=== PATIENT | female | born 1990 | race Caucasian/White ===

== ENCOUNTER 2019-04-26 22:31 | Emergency (ER) | payer OTHER ==
[~2019-04-26] VITALS: Ht 162.6 cm; Wt 131.0 kg
--- NOTE | 2019-04-26 22:41 | PHYS DOC ---
Past History Past Medical History: Anemia, Constipation, Other Past Surgical History: Other Smoking: Non-smoker Alcohol Use: None Drug Use: None Adult General Chief Complaint Chief Complaint: ".. I am having some chest pain.. .I know I have a murmur... I just had a baby .. and doing breast feeding.. but this pain is on center.. and sometimes run s up in my neck... " HPI HPI Patient is a 28 year old female who presents with above hx and complaints of chest pain , fatigue and dyspnea. He localizes chest pain on left closed phrenic and sternal border which radiates into her neck area. Nothing seems to make the pain better or worse. Patient rates pain as moderate to severe. Patient denies previous history of cardiac issues. Pt. states normal delivery on . No complications. Pt. is breast feeding. No hx. of trauma or injury to chest wall. No history of travel or specific ill contacts. No history of cough. No history of fever or chills. No history of coagulopathy with her family members. Pt. follows with Dr Patel Review of Systems Review of Systems Constitutional: Denies fever or chills [] Eyes: Denies change in visual acuity, redness, or eye pain [] HENT: Denies nasal congestion or sore throat [] Respiratory: Denies cough or shortness of breath [] Cardiovascular: No additional information not addressed in HPI [] GI: Denies abdominal pain, nausea, vomiting, bloody stools or diarrhea [] : Denies dysuria or hematuria [] Musculoskeletal: Denies back pain or joint pain [] Integument: Denies rash or skin lesions [] Neurologic: Denies headache, focal weakness or sensory changes [] Endocrine: Denies polyuria or polydipsia [] All other systems were reviewed and found to be within normal limits, except as documented in this note. Family History Family History Father has Afib. Current Medications Current Medications See nursing for home meds Allergies Allergies Allergies Coded Allergies Type Severity Reaction Last Updated Verified No Known Drug Allergies 05/23/13 No Physical Exam Physical Exam Constitutional: Well developed, well nourished,moderate acute distress, non- toxic appearance. [] HENT: Normocephalic, atraumatic, bilateral external ears normal, oropharynx moist, no oral exudates, nose normal. [] Eyes: PERRLA, EOMI, conjunctiva normal, no discharge. [] Neck: Normal range of motion, no tenderness, supple, no stridor. [] Cardiovascular: bradycardia Heart rate regular rhythm, no murmur [] Lungs & Thorax: Bilateral breath sounds equal at apexes on auscultation []Some sternal tenderness on palpation. Abdomen: Bowel sounds normal, soft, no tenderness, no masses, no pulsatile masses. [] Skin: Warm, dry, no erythema, no rash. [] Back: No tenderness, no CVA tenderness. [] Extremities: No tenderness, no cyanosis, no clubbing, ROM intact, mild edema rt. ankle [] Neurologic: Alert and oriented X 3, normal motor function, normal sensory function, no focal deficits noted. [] Psychologic: Affect anxious judgement normal, mood normal. [] EKG EKG My interpretation EKG shows a sinus bradycardia 60 bpm. No findings acute morphology. 2240 hrs. [] Repeat EKG shows a sinus bradycardia at 59 bpm. No findings acute STEMI. No acute interval change. at 03:57 as compared to prior EKG Radiology/Procedures Radiology/Procedures [address] [address] IMAGING REPORT Signed PATIENT: CHARLEEN KINNEY ACCOUNT: [id number] : 1990 LOCATION: ER AGE: 28 SEX: F EXAM STATUS: REG ER ORD. PHYSICIAN: ELENA ALONSO MD REASON: pain PROCEDURE: CHEST PA & LATERAL CHEST PA LATERAL History: Pain. Comparison: None. Findings: The cardiomediastinal silhouette is normal. Pulmonary vasculature is normal. The lungs are clear. No pleural effusion or pneumothorax is seen. There is no acute bone abnormality. IMPRESSION: No acute cardiopulmonary process. Electronically signed by: Rao Juan MD (04/27/2019 2:10 AM) [id number] DICTATED AND SIGNED BY: RAO JUAN MD DATE: 04/27/190 CC: ELENA ALONSO MD; LUZ PATEL ~ [[address] [address] IMAGING REPORT Signed PATIENT: CHARLEEN KINNEY ACCOUNT: [id number] : 1990 LOCATION: ER AGE: 28 SEX: F EXAM STATUS: REG ER ORD. PHYSICIAN: ELENA ALONSO MD REASON: Elev. D-dimer, chest wall pain, OMNI 350, 90ml PROCEDURE: CT ANGIOGRAPHY CHEST PQRS Compliance Statement: One or more of the following individualized dose reduction techniques were utilized for this examination: 1. Automated exposure control 2. Adjustment of the mA and/or kV according to patient size 3. Use of iterative reconstruction technique CT CHEST WITH CONTRAST, PULMONARY ANGIOGRAM History: Elevated d-dimer, chest wall pain. Comparison: None. Technique: Helical CT of the chest was performed after the administration of 90 cc of Omnipaque 350 intravenous contrast according to PE protocol. Axial and coronal reconstructions were obtained. 3-D MIP images were constructed to better evaluate the pulmonary arteries. Findings: Pulmonary arteries are adequately opacified. There is no evidence of pulmonary embolism. There is no thoracic aortic dissection. The great vessels are normal caliber. Residual thymus in the anterior mediastinum, normal for a patient of this age. The breasts are extremely dense. There is no adenopathy in the chest. Cardiac size normal, no pericardial effusion. There is no pleural abnormality. The central airways are patent. There is atelectasis in the bilateral lower lobes. No lung consolidation. The visualized upper abdomen is unremarkable. The thoracic spine alignment is maintained. There is a small amount of air in the right shoulder joint, nonspecific. No acute displaced rib fracture. IMPRESSION: There is no pulmonary embolus. Electronically signed by: Rao Juan MD (04/27/2019 1:59 AM) [id number] DICTATED AND SIGNED BY: RAO JUAN MD DATE: 04/27/19 0159 CC: ELENA ALONSO MD; LUZ PATEL ~ ][address] [address] IMAGING REPORT Signed PATIENT: CHARLEEN KINNEY ACCOUNT: [id number] : 1990 LOCATION: ER AGE: 28 SEX: F EXAM STATUS: REG ER ORD. PHYSICIAN: ELENA ALONSO MD REASON: Elevated D-dimer, chest pain, leg edema PROCEDURE: VENOUS LOWER EXT BILATERAL Bilateral lower extremity venous Doppler ultrasound History: Bilateral leg edema. 4 days. Comparison: None. Procedure: Color flow Doppler, Doppler spectral analysis, and 2D images are obtained with and without compression in the area of the common femoral vein, superficial femoral vein - femoral vein junction, main femoral vein (superficial femoral vein) and popliteal vein. Veins of the proximal calf are also imaged. Findings: There is normal color flow, augmentation, and compressibility of all visualized vein segments. No evidence of deep venous thrombus is present. IMPRESSION: No evidence of right or left lower extremity deep venous thrombosis. Electronically signed by: Rao Juan MD (04/27/2019 3:52 AM) [id number] DICTATED AND SIGNED BY: RAO JUAN MD DATE: 04/27/19 0352 CC: ELENA ALONSO MD; LUZ PATEL ~ Course & Med Decision Making Course & Med Decision Making Pertinent Labs and Imaging studies reviewed. (See chart for details) Pt. to take tylenol for pain if breast feeding. If not breast feeding may take Ibuprofen. Push fluids. Follow up with [facility] and Primary. Return if any concerns. Pump breast milk the next 24 hrs and discard. 1. Chest Pain- chest wall. 2. Vaginal Delivery 3. Anemia 10.7 with Low Iron, check tonight 11.8 Hgb. 4. Malnutrition- Alb. 2.9 5. Elevated D-dimer 1.42 [] Dragon Disclaimer Dragon Disclaimer This electronic medical record was generated, in whole or in part, using a voice recognition dictation system. Departure Departure: Disposition: 01 HOME/RESIDENCE PRIOR TO ADM Condition: STABLE Referrals: LUZ PATEL (PCP) Geoffrey Disclaimer This chart was dictated in whole or in part using Voice Recognition software in a busy, high-work load, and often noisy Emergency Department environment. It may contain unintended and wholly unrecognized errors or omissions. ELENA ALONSO MD Apr 26, 2019 22:41
[2019-04-26] MEDS ORDERED: ASPIRIN 81 MG TAB.CHEW PO ONE (23:00)
[2019-04-26] MEDS ORDERED: IV RINGERS SOLUTION,LACTATED 1,000 ML IV SCH (23:00)
[2019-04-26 23:28] LABS: BASO # 0.1 x10^3/uL (0.0-0.2); BASO % 1 % (0-3); EOS # 0.1 x10^3/uL (0.0-0.7); EOS % 1 % (0-3); HEMATOCRIT 36.1 % (36.0-47.0); HEMOGLOBIN 11.8 g/dL (12.0-15.5); LYMPH # 1.5 x10^3/uL (1.0-4.8); LYMPH % 17 % (24-48); MEAN CORPUSCULAR HEMOGLOBIN 30 pg (25-35); MEAN CORPUSCULAR HGB CONC 33 g/dL (31-37); MEAN CORPUSCULAR VOLUME 92 fL (79-100); MONO # 0.3 x10^3/uL (0.0-1.1); MONO % 4 % (0-9); NEUT # 6.7 x10^3uL (1.8-7.7); NEUT % 77 % (31-73); PLATELET COUNT 297 x10^3/uL (140-400); RED BLOOD COUNT 3.94 x10^6/uL (3.50-5.40); RED CELL DISTRIBUTION WIDTH 12.9 % (11.5-14.5); WHITE BLOOD COUNT 8.7 x10^3/uL (4.0-11.0)
[2019-04-26 23:36] LABS: CALCIUM 8.4 mg/dL (8.5-10.1); CREATININE 0.6 mg/dL (0.6-1.0); POTASSIUM 3.7 mmol/L (3.5-5.1)
[2019-04-26 23:48] LABS: ALBUMIN 2.9 g/dL (3.4-5.0); DIRECT BILIRUBIN 0.1 mg/dL (0.0-0.2); MAGNESIUM 1.8 mg/dL (1.8-2.4); TOTAL BILIRUBIN 0.2 mg/dL (0.2-1.0); TOTAL PROTEIN 6.3 g/dL (6.4-8.2)
[2019-04-27] MEDS ORDERED: ENOXAPARIN ** NOTE DOSE ** SYRINGE SQ ONE (00:45)
[2019-04-27] MEDS ORDERED: IOHEXOL 350 MG/ML 100 ML VIAL. IV ONE (00:45)
[2019-04-27] MEDS ORDERED: CONTRAST GIVEN MC PRN (00:45)
[2019-04-27 01:27] LABS: BARBITURATES NEG (NEG); BENZODIAZEPINES NEG (NEG); CANNABINOIDS NEG (NEG); COCAINE NEG (NEG); METHADONE NEG (NEG); OPIATES NEG (NEG); PHENCYCLIDINE NEG (NEG)
[2019-04-27 01:28] LABS: AMPHETAMINE/METHAMPHETAMINE NEG (NEG)
[2019-04-27 01:32] LABS: BILIRUBIN,URINE NEG (NEG); CLARITY,URINE CLEAR; COLOR,URINE YELLOW; GLUCOSE,URINE NEG (NEG)
[2019-04-27 01:33] LABS: BACTERIA,URINE FEW /HPF (0-FEW); NITRITE,URINE NEG (NEG); SQUAMOUS EPITHELIAL CELL,UR OCC /LPF; UROBILINOGEN,URINE 0.2 mg/dL (0.2 mg/dL)
--- NOTE | 2019-04-27 02:02 | RAD ---
PQRS Compliance Statement: One or more of the following individualized dose reduction techniques were utilized for this examination: 1. Automated exposure control 2. Adjustment of the mA and/or kV according to patient size 3. Use of iterative reconstruction technique CT CHEST WITH CONTRAST, PULMONARY ANGIOGRAM History: Elevated d-dimer, chest wall pain. Comparison: None. Technique: Helical CT of the chest was performed after the administration of 90 cc of Omnipaque 350 intravenous contrast according to PE protocol. Axial and coronal reconstructions were obtained. 3-D MIP images were constructed to better evaluate the pulmonary arteries. Findings: Pulmonary arteries are adequately opacified. There is no evidence of pulmonary embolism. There is no thoracic aortic dissection. The great vessels are normal caliber. Residual thymus in the anterior mediastinum, normal for a patient of this age. The breasts are extremely dense. There is no adenopathy in the chest. Cardiac size normal, no pericardial effusion. There is no pleural abnormality. The central airways are patent. There is atelectasis in the bilateral lower lobes. No lung consolidation. The visualized upper abdomen is unremarkable. The thoracic spine alignment is maintained. There is a small amount of air in the right shoulder joint, nonspecific. No acute displaced rib fracture. IMPRESSION: There is no pulmonary embolus. Electronically signed by: Rao Juan MD (04/27/2019 1:59 AM) [id number]
--- NOTE | 2019-04-27 02:13 | RAD ---
CHEST PA LATERAL History: Pain. Comparison: None. Findings: The cardiomediastinal silhouette is normal. Pulmonary vasculature is normal. The lungs are clear. No pleural effusion or pneumothorax is seen. There is no acute bone abnormality. IMPRESSION: No acute cardiopulmonary process. Electronically signed by: Rao Juan MD (04/27/2019 2:10 AM) [id number]
--- NOTE | 2019-04-27 03:55 | RAD ---
Bilateral lower extremity venous Doppler ultrasound History: Bilateral leg edema. 4 days. Comparison: None. Procedure: Color flow Doppler, Doppler spectral analysis, and 2D images are obtained with and without compression in the area of the common femoral vein, superficial femoral vein - femoral vein junction, main femoral vein (superficial femoral vein) and popliteal vein. Veins of the proximal calf are also imaged. Findings: There is normal color flow, augmentation, and compressibility of all visualized vein segments. No evidence of deep venous thrombus is present. IMPRESSION: No evidence of right or left lower extremity deep venous thrombosis. Electronically signed by: Rao Juan MD (04/27/2019 3:52 AM) [id number]
[2019-04-27 05:36] VITALS: BP 144/79
--- NOTE | 2019-04-27 08:23 | EKG ---
[address] [address] Test Date: 2019-04-26 Test Time: 22:40:39 Pat Name: CHARLEEN KINNEY Department: Room: Gender: F Heel Slicker: : 1990 Requested By: ELENA ALONSO Order Number: [id number] Reading MD: Measurements Intervals Copen Rate: 60 P: -28 TX: 148 QRS: 45 QRSD: 68 T: 20 QT: 364 QTc: 368 Interpretive Statements SINUS RHYTHM NORMAL ECG RI6.01 No previous ECG available for comparison
[2019-04-27 14:53] LABS: THYROID STIM HORMONE (TSH) 1.655 uIU/mL (0.358-3.740)
== END 2019-04-27 05:40 | disposition home or self-care (01) ==
LOC: ER 22:31
DX: R07.89 Other chest pain (principal); D64.9 Anemia, unspecified; R79.1 Abnormal coagulation profile; E46 Unspecified protein-calorie malnutrition; Z68.42 Body mass index [BMI] 45.0-49.9, adult
CPT/HCPCS: 36415; 71046; 71275; 80048; 80061; 80076; 80307; 81001; 81025; 82550; 83690; 83735; 83880; 84443; 84484; 85025; 85379; 85610; 85730; 87086; 93005; 93970; 99285; J7120; Q9967